=== PATIENT | female | born 1990 | race Caucasian/White ===

== ENCOUNTER 2017-01-09 01:06 | Emergency (ER) | payer SELFPAY ==
[~2017-01-09] VITALS: Ht 162.6 cm; Wt 64.5 kg
[2017-01-09 01:10] VITALS: Ht 162.6 cm; Wt 64.5 kg
[2017-01-09] MEDS ORDERED: SOD CHLORIDE 0.9% 1,000 ML IV STA (01:32)
[2017-01-09] MEDS ORDERED: DIPHENHYDRAMINE 50 MG INJ IV STA (01:32)
[2017-01-09] MEDS ORDERED: METOCLOPRAMIDE 10 MG INJ IV STA (01:32)
[2017-01-09] MEDS ORDERED: KETOROLAC 30 MG INJ IV STA (01:32)
[2017-01-09 02:30] LABS: ADD SCAN DIFF NO
[2017-01-09 02:33] LABS: BASOPHILS % 0.3 % (0.0-2.0); EOSINOPHILS # 0.1 10^3/ul (0.0-0.5); EOSINOPHILS % 0.8 % (0.0-7.0); HEMATOCRIT 44.5 % (37.0-47.0); HEMOGLOBIN 14.7 g/dl (12.0-16.0); LYMPHOCYTES # 1.9 10^3/ul (0.8-2.9); LYMPHOCYTES % 21.2 % (15.0-51.0); MEAN CORPUSCULAR HEMOGLOBIN 28.5 pg (29.0-33.0); MEAN CORPUSCULAR VOLUME 86.4 fl (82.0-101.0); MEAN PLATELET VOLUME 10.1 fl (7.4-10.4); MONOCYTE # 0.6 10^3/ul (0.3-0.9); MONOCYTES % 6.2 % (0.0-11.0); NEUTROPHIL # 6.3 10^3/ul (1.6-7.5); NEUTROPHILS % 71.3 % (39.0-77.0); PLATELET COUNT 363 10^3/UL (140-415); RED BLOOD COUNT 5.15 10^6/ul (4.20-5.40); RED CELL DISTRIBUTION WIDTH 13.4 % (11.5-14.5); WHITE BLOOD COUNT 8.8 10^3/ul (4.8-10.8)
[2017-01-09 02:49] LABS: POTASSIUM 3.8 mmol/L (3.5-5.1)
[2017-01-09 02:52] LABS: CREATININE 0.59 mg/dl (0.44-1.00)
[2017-01-09 02:53] LABS: CALCIUM 10.4 mg/dl (8.4-10.2)
[2017-01-09 02:55] LABS: INR 0.94; PARTIAL THROMBOPLASTIN TIME 31.6 Sec (25.0-35.0); PROTIME 12.6 Sec (12.2-14.2)
[2017-01-09] MEDS ORDERED: NAPR-260 PO (03:13)
[2017-01-09] MEDS ORDERED: HYDR-906 PO (03:14)
--- NOTE | 2017-01-09 03:15 | RADRPT ---
PROCEDURE: CT head, without contrast. CLINICAL INDICATION: Headache. TECHNIQUE: Noncontrast CT examination of the head, with axial, sagittal and coronal reformatted im ages. Automated dose exposure control was employed. CTDI: 42.30 and DLP: 630.20 COMPARISON: None. FINDINGS: Note acute hemorrhage. Subarachnoid spaces are substantially preserved and symmetric. Ventricles are unremarkable. No mass effect. Mandel-white matter distinction is preserved without evident decreased attenuation t o suggest acute or recent infarct. Sinuses and osseous structures are unremarkable. IMPRESSION: No acute process in the head. RPTAT: [facility] Physician Ayana Date Time Electronically viewed and signed by Physician Ayana on 01/09/2017 03:15 RS/
--- NOTE | 2017-01-09 03:31 | ERD ---
ER Documentation Chief Complaint Date/Time DATE: 01/09/17 TIME: 03:28 Chief Complaint right eye pain, headache HPI This is a 26-year-old female that presents to the ER with a bilateral headache that has been going on for the last week. Patient states that headache does move from the left to the right side and she does feel pressure behind her eyes. Patient denies any eyeball pain. She denies any eye discharge. She denies any eye trauma. She denies seeing any halos, or floaters in her eyes. Patient does admit to photophobia with nausea. She denies any vomiting or diarrhea. She denies any cough or cold symptoms. Patient states that over the last few months she has been very stressed because she is working too much and does not get much sleep. ROS 12 point review of systems was done, all negative except per HPI. Medications Home Meds Active Scripts Hydrocodone/Acetaminophen ([place] 5-325 Tablet) 1 Each Tablet, 1 TAB PO Q6H Y for PAIN, #10 TAB Prov:LIZ CROSS 01/09/17 Naproxen* (Naprosyn*) 500 Mg Tablet, 500 MG PO BID Y for PAIN AND/OR INFLAMMATION, #30 TAB Prov:AMERICALZI C 01/09/17 Allergies Allergies: Coded Allergies: No Known Allergy (Unverified , 01/09/17) PMhx/Soc History of Surgery: Yes ( 12/25/16) Anesthesia Reaction: No Hx Alcohol Use: No Hx Substance Use: No Hx Tobacco Use: No Smoking Status: Never smoker Physical Exam Vitals Vital Signs Date Time Temp Pulse Resp B/P Pulse Ox O2 Delivery O2 Flow Rate FiO2 01/09/17 01:10 98.3 77 20 122/88 98 Physical Exam GENERAL: The patient is well developed and appropriate for usual state of health , in no apparent distress. HEENT: Atraumatic. Conjunctivae are pink. Pupils equal, round, and reactive to light. Extraocular muscles are grossly intact. Bilateral tympanic membranes are clear with no evidence of erythema, bulging or perforation. No sinus tenderness. NECK: C-spine is soft and supple. There is no cervical lymphadenopathy. CHEST: Clear to auscultation bilaterally. There are no rales, wheezes or rhonchi. HEART: Regular rate and rhythm. No murmurs, clicks, rubs or gallops. EXTREMITIES: Equal pulses bilaterally. There is no peripheral clubbing, cyanosis or edema. No focal swelling or erythema. Full range of motion. Grossly neurovascularly intact. NEURO: Alert and oriented. Cranial nerves II through XII are intact. Motor strength in all 4 extremities with 5/5 strength. Sensation grossly intact. Normal speech and gait. Negative Rhomberg. +2 DTRs. SKIN: There is no apparent rash or petechia. The skin is warm and dry. Result Diagram: 01/09/1720301/09/17 020 Results 24 hrs Laboratory Tests Test 01/09/17 02:04 White Blood Count 8.810^3/ul Red Blood Count 5.1510^6/ul Hemoglobin 14.7g/dl Hematocrit 44.5% Mean Corpuscular Volume 86.4fl Mean Corpuscular Hemoglobin 28.5pg Mean Corpuscular Hemoglobin Concent 33.0g/dl Red Cell Distribution Width 13.4% Platelet Count 97798^3/UL Mean Platelet Volume 10.1fl Neutrophils % 71.3% Lymphocytes % 21.2% Monocytes % 6.2% Eosinophils % 0.8% Basophils % 0.3% Nucleated Red Blood Cells % 0.0/100WBC Neutrophils # 6.310^3/ul Lymphocytes # 1.910^3/ul Monocytes # 0.610^3/ul Eosinophils # 0.110^3/ul Basophils # 0.010^3/ul Nucleated Red Blood Cells # 0.010^3/ul Prothrombin Time 12.6Sec Prothrombin Time Ratio 1.0 INR International Normalized Ratio 0.94 Activated Partial Thromboplast Time 31.6Sec Sodium Level 145mmol/L Potassium Level 3.8mmol/L Chloride Level 102mmol/L Carbon Dioxide Level 25mmol/L Anion Gap 22 Blood Urea Nitrogen 8mg/dl Creatinine 0.59mg/dl Glucose Level 89mg/dl Calcium Level 10.4mg/dl Current Medications Medications (Trade) Dose Ordered Sig/Yony Route PRN Reason Start Time Stop Time Status Last Admin Dose Admin Sodium Chloride (NS) 1,000 ml @ 1,000 mls/hr Q1H STAT IV 01/09/17 01:32 01/09/17 02:31 DC 01/09/17 01:44 Metoclopramide HCl (Reglan) 10 mg ONCE STAT IV 01/09/17 01:32 01/09/17 01:34 DC 01/09/17 01:43 Ketorolac Tromethamine (Toradol) 30 mg ONCE STAT IV 01/09/17 01:32 01/09/17 01:34 DC 01/09/17 01:44 Diphenhydramine HCl (Benadryl) 25 mg ONCE STAT IV 01/09/17 01:32 01/09/17 01:34 DC 01/09/17 01:43 Procedures/MDM Differential Diagnosis includes but is not limited to; tension headache, migraine headache, cluster headache, sinus headache, nonspecific febrile headache, trigeminal neurologia, subdural hematoma, subarachnoid bleeding, meningitis, encephalitis. Patient is neurologically intact with no focal neurological deficits. Patient was given a cocktail for migraines here in the ER, upon reexamination she felt much better. She may be having a migraine headache versus a tension headache. At this time I do not believe that patient has any eye pathology, as she does not complain of eyeball pain. She Had normal and nonpainful extraocular movements and there is no evidence of conjunctival injection or discharge. Patient will be sent home with [place] and naproxen. She needs to follow-up with her primary care doctor within 1-2 days or return to ER sooner if symptoms worsen. My medical decision making was shared with the patient she understands and agrees with plan Departure Diagnosis: Primary Impression: Headache Condition: Stable Patient Instructions: Self-Care for Headaches Additional Instructions: Call your primary care doctor TOMORROW for an appointment during the next 1-2 days.See the doctor sooner or return here if your condition worsens before your appointment time. LIZ CROSS Jan 09, 2017 03:31
== END 2017-01-09 03:40 | disposition home or self-care (01) ==
LOC: FTE 01:06
DX: R51 Headache (principal)
CPT/HCPCS: 36415; 70450; 80048; 85025; 85610; 85730; 96374; 96375; 99285; J1200; J1885; J2765; J7030